=== PATIENT | female | born 1970 | race Caucasian/White ===

== ENCOUNTER 2023-01-03 19:20 | Emergency (ER) | payer MEDICAID ==
[~2023-01-03] VITALS: Ht 165.1 cm; Wt 73.0 kg
[2023-01-03 19:27] VITALS: O2SAT 99
[2023-01-03 21:06] LABS: BASOPHILS % 0.2 % (0.0-2.0); EOSINOPHILS % 0.2 % (0.0-5.0); HEMATOCRIT. 37.1 % (36.0-48.0); HEMOGLOBIN. 12.6 g/dL (12.0-16.0); LYMPHOCYTES % 17.9 % (20.0-50.0); MEAN CORPUSCULAR HEMOGLOBIN 31.8 pg (28.0-32.0); MEAN CORPUSCULAR HGB CONC 33.9 g/dL (31.0-37.0); MEAN CORPUSCULAR VOLUME 93.8 fL (81.0-99.0); NEUTROPHILS % 74.7 % (40.0-76.0); RED BLOOD CELL COUNT 3.96 mill/uL (4.2-5.4); RED CELL DISTRIBUTION WIDTH 13.8 % (11.6-14.6)
[2023-01-03 21:12] LABS: DIFFERENTIAL COMMENT 1
[2023-01-03 21:22] LABS: CHLORIDE 103 mEq/L (98-107); INDEX HEMOLYSI 1 (1-3); INDEX ICTERIC 1 (1-4); INDEX LIPEMIC 1 (1-3); POTASSIUM 3.2 mEq/L (3.5-5.1); SODIUM 135 mEq/L (136-145)
[2023-01-03 21:31] LABS: ALANINE AMINOTRANSFERASE 16 IU/L (13-61); ALBUMIN 3.9 g/dL (3.4-5.0); ASPARTATE AMINOTRANSFERASE 11 IU/L (15-37); BILIRUBIN TOTAL 0.6 mg/dL (0.1-1.0); CALCIUM 9.2 mg/dL (8.5-10.1); CARBON DIOXIDE 25 mEq/L (21-32); CREATININE 0.8 mg/dL (0.6-1.3); GLUCOSE 122 mg/dL (70-105); PROTEIN TOTAL 8.9 g/dL (6.0-8.3); UREA NITROGEN BLOOD 9 mg/dL (7-21)
[2023-01-03 21:38] LABS: MEAN PLATELET VOLUME 8.3 fl (7.4-10.4); PLATELET 279 x1000/uL (130-400)
[2023-01-03 22:18] LABS: CLARITY URINE CLEAR (CLEAR); COLOR URINE YELLOW (YELLOW); GLUCOSE URINE NEGATIVE (NEGATIVE); KETONES URINE NEGATIVE (NEGATIVE); LEUKOCYTE ESTERASE URINE 3+ (NEGATIVE); NITRITE URINE NEGATIVE (NEGATIVE); OCCULT BLOOD URINE 2+ (NEGATIVE); PROTEIN URINE NEGATIVE (NEGATIVE); SPECIFIC GRAVITY URINE 1.007 (1.005-1.030); UROBILINOGEN URINE 0.2 E.U./dL (0.2-1.0)
[2023-01-03 22:37] LABS: BACTERIA URINE 1+; SQUAMOUS EPITHELIAL CELL URINE FEW /lpf (RARE/1+)
[2023-01-03] MEDS ORDERED: KETOROLAC 30MG/ML VIAL IV STA (22:50)
[2023-01-03] MEDS ORDERED: IBUP-2030 MT (22:55)
[2023-01-03] MEDS ORDERED: CEFP200T13 MT (22:55)
[2023-01-03] MEDS ORDERED: CEFTRIAXONE 1GM PREMIX 50 ML IV ONE (23:00)
[2023-01-03] MEDS ORDERED: ONDA4TAB11 PO (23:01)
[2023-01-04 01:23] VITALS: BP 112/70; PULSE 84; RESP 18; TEMP 98.2
== END 2023-01-04 01:26 | disposition home or self-care (01) ==
LOC: ER 19:20
DX: N81.4 Uterovaginal prolapse, unspecified (principal); N39.0 Urinary tract infection, site not specified; N20.0 Calculus of kidney; N13.30 Unspecified hydronephrosis; Z90.710 Acquired absence of both cervix and uterus
CPT/HCPCS: 99285; 74176; 96365; 76856; 96375; 80053; 81003; 83605; 83690; 85025; 87040; 36415; 84145; J0696; J1885